=== PATIENT | male | born 1940 | race Caucasian/White ===

== ENCOUNTER 2019-11-19 14:12 | Outpatient (CLI) | payer MEDICARE, BC ==
--- NOTE | 2019-11-19 14:32 | RAD ---
EXAM: XR Hip Lt 2-3 View PROVIDED CLINICAL HISTORY: Pain FINDINGS: There is no evidence for fracture or other acute osseous abnormality. Alignment appears anatomic. Selene nt spaces appear preserved. IMPRESSION: No evidence for an acute osseous abnormality or significant arthropathy.
== END 2019-11-19 14:13 | disposition home or self-care (01) ==
LOC: TBSIIMAG 14:12
PROVIDERS: ATTEND Neurological Surgery
DX: M54.5 Low back pain (principal); M25.551 Pain in right hip; M25.552 Pain in left hip

== ENCOUNTER 2022-09-01 00:30 | Observation (INO) | payer MEDICARE, BC ==
[2022-09-01 03:38] VITALS: BMI 27.8
[2022-09-01] MEDS ORDERED: Acetaminophen/Codeine 30-300mg Tablet PO PRN (04:35)
[2022-09-01] MEDS ORDERED: TETANUS, DIPHTHERIA TOX,ADULT (TDVAX) 0.5 ML VIAL IM ONE (08:28)
[2022-09-01] MEDS ORDERED: PHARMACY TO RENALLY ADJUST ABX FS SCH (08:30)
[2022-09-01] MEDS ORDERED: Ketorolac Tromethamine 10 MG TAB PO PRN (08:35)
[2022-09-01] MEDS: Aspirin 81 mg Enteric Coated Tablet PO SCH ×2 (10:42→21:02)
[2022-09-01] MEDS: Acetaminophen 325 MG TAB PO PRN ×2 (14:37→20:57)
[2022-09-01] MEDS ORDERED: Oxymetazoline HCl 0.05% (30 ML BOT) NS PRN (15:05)
[2022-09-01] MEDS: Metoprolol Tartrate 50 MG TAB PO SCH (20:59)
[2022-09-01] MEDS: Lisinopril 20 MG TAB PO SCH (20:59)
[2022-09-01] MEDS ORDERED: Amitriptyline HCl 25 MG TAB PO SCH (21:00)
[2022-09-01] MEDS ORDERED: Amlodipine 10 MG TAB PO SCH (21:00)
[2022-09-01] MEDS ORDERED: Atorvastatin Calcium 20 MG TAB PO SCH (21:00)
[2022-09-01] MEDS ORDERED: Zolpidem Tartrate 5 MG TAB PO SCH (21:00)
[2022-09-01] MEDS ORDERED: Polyethylene Glycol 3350 17 GM Packet PO PRN (22:07)
[2022-09-01] MEDS ORDERED: Docusate 100 MG CAP PO PRN (22:09)
[2022-09-02] MEDS: Metoprolol Tartrate 50 MG TAB PO SCH (08:29)
[2022-09-02] MEDS: Aspirin 81 mg Enteric Coated Tablet PO SCH (08:29)
[2022-09-02] MEDS: Lisinopril 20 MG TAB PO SCH (08:29)
[2022-09-02 08:30] VITALS: BP 148/80
[2022-09-02 08:57] VITALS: TEMP 97.4
[2022-09-02] MEDS: Acetaminophen 325 MG TAB PO PRN (09:06)
== END 2022-09-02 13:50 | disposition home or self-care (01) ==
LOC: MSONC 00:30
PROVIDERS: ADMIT Orthopaedic Surgery; ATTEND Orthopaedic Surgery
DX: R53.1 Weakness (principal); M19.90 Unspecified osteoarthritis, unspecified site; Z79.899 Other long term (current) drug therapy; Z88.1 Allergy status to other antibiotic agents; Z88.5 Allergy status to narcotic agent; Z88.8 Allergy status to other drugs, medicaments and biological substances; Z98.1 Arthrodesis status
CPT/HCPCS: 96372; 97116; G0378 ×2